=== PATIENT | male | born 1955 | race Caucasian/White ===

== ENCOUNTER 2021-02-19 19:13 | Emergency (ER) | payer MEDICARE ==
[2021-02-19 19:55] LABS: BASO # 0.05 (0.02-0.10); EOS # 0.05 (0.04-0.40); EOS % 0.4 % (0.0-4.0); HEMATOCRIT 44.1 % (42.0-52.0); HEMOGLOBIN 15.4 g/dL (13.5-18.0); LYMPH# 1.23 (1.50-4.00); MEAN CELL VOLUME 93 fl (78-100); MEAN CORPUSCULAR HEMOGLOBIN 32 pg (27-31); MEAN CORPUSCULAR HGB CONC 35 g/dL (33-37); MEAN PLATELET VOLUME 9.2 fl (7.4-10.4); MONO # 0.52 (0.20-0.80); NEU # 10.26 (1.40-6.50); PLATELET COUNT 211 K/mm3 (130-400); RED BLOOD COUNT 4.77 M/mm3 (4.20-5.60); RED CELL DISTRIBUTION WIDTH 11.9 % (11.5-14.5); WHITE BLOOD COUNT 12.1 K/mm3 (4.8-10.8)
[2021-02-19 20:11] LABS: ALBUMIN 4.3 g/dL (3.4-4.8); POTASSIUM 3.9 mmol/L (3.5-5.1)
[2021-02-19 20:12] LABS: CALCIUM 9.6 mg/dL (8.3-10.5)
[2021-02-19 20:13] LABS: TOTAL PROTEIN 7.3 g/dL (6.2-8.1)
[2021-02-19 20:15] LABS: TOTAL BILIRUBIN 0.5 mg/dL (0.2-1.2)
[2021-02-19] MEDS ORDERED: ALPRAZOLAM1 MG PO (20:34)
[2021-02-19] MEDS ORDERED: AMLODIPINE BESYL5 MG PO (20:35)
[2021-02-19] MEDS ORDERED: CYCLOBENZAPRINE10 M1 PO (20:35)
[2021-02-19] MEDS ORDERED: FLUTICASON0.05 MG/AC NS (20:35)
[2021-02-19] MEDS ORDERED: LISINOPRIL20 MG PO (20:36)
[2021-02-19] MEDS ORDERED: HCTZ 25MG25 MG PO (20:36)
[2021-02-19] MEDS ORDERED: FLOMAX0.4 MG PO (20:37)
[2021-02-19] MEDS ORDERED: MELOXICAM15 MG PO (20:37)
[2021-02-19] MEDS ORDERED: ULTRAM50 M1 PO (20:38)
[2021-02-19 21:06] LABS: URINE APPEARANCE CLEAR; URINE COLOR YELLOW; URINE PROTEIN(semi-quant) NEGATIVE (NEGATIVE)
[2021-02-19 21:07] LABS: URINE BILIRUBIN NEGATIVE (NEGATIVE); URINE BLOOD TRACE (NEGATIVE); URINE KETONE 1+ (NEGATIVE); URINE LEUKOCYTE ESTERASE NEGATIVE (NEGATIVE); URINE NITRATE NEGATIVE (NEGATIVE); URINE UROBILINOGEN NORMAL (NORMAL); URINE WBC 0-1 /hpf (0-3)
[2021-02-20 03:52] VITALS: BP 140/88
== END 2021-02-20 03:52 | disposition home or self-care (01) ==
LOC: ED 19:13
PROVIDERS: Family Medicine
DX: N20.1 Calculus of ureter (principal); K59.00 Constipation, unspecified; G89.29 Other chronic pain; M54.9 Dorsalgia, unspecified; E11.9 Type 2 diabetes mellitus without complications; I10 Essential (primary) hypertension; N40.0 Benign prostatic hyperplasia without lower urinary tract symptoms; Z87.891 Personal history of nicotine dependence; Z79.899 Other long term (current) drug therapy
CPT/HCPCS: J0696; J1885; J7030

== ENCOUNTER 2022-04-26 17:08 | Emergency (ER) | payer MEDICARE ==
[~2022-04-26 17:08] MED LIST: ALPRAZOLAM1 MG PO; AMLODIPINE BESYL5 MG PO; CYCLOBENZAPRINE10 M1 PO; FLOMAX0.4 MG PO; FLUTICASON0.05 MG/AC NS; HCTZ 25MG25 MG PO; LISINOPRIL20 MG PO; MELOXICAM15 MG PO; ULTRAM50 M1 PO
[2022-04-26] MEDS ORDERED: NORCO 325 MG-7.1 TAB PO (17:14)
[2022-04-26] MEDS ORDERED: ATORVASTATIN CA10 MG PO (17:15)
[2022-04-26] MEDS ORDERED: GLUCOPHAGE PO (17:15)
[2022-04-26] MEDS ORDERED: FLUTICASONE-SA1 EAC3 IH (17:15)
[2022-04-26 17:54] LABS: BASO # 0.06 K/mm3 (0.02-0.10); EOS # 0.13 K/mm3 (0.04-0.40); EOS % 1.9 % (0.0-4.0); HEMATOCRIT 43.9 % (42.0-52.0); HEMOGLOBIN 15.7 g/dL (13.5-18.0); LYMPH# 1.58 K/mm3 (1.50-4.00); MEAN CELL VOLUME 92 fl (78-100); MEAN CORPUSCULAR HEMOGLOBIN 33 pg (27-31); MEAN CORPUSCULAR HGB CONC 36 g/dL (33-37); MEAN PLATELET VOLUME 9.9 fl (7.4-10.4); MONO # 0.55 K/mm3 (0.20-0.80); NEU # 4.56 K/mm3 (1.40-6.50); PLATELET COUNT 211 K/mm3 (130-400); RED BLOOD COUNT 4.78 M/mm3 (4.20-5.60); RED CELL DISTRIBUTION WIDTH 11.6 % (11.5-14.5); WHITE BLOOD COUNT 6.9 K/mm3 (4.8-10.8)
[2022-04-26 18:05] LABS: ALBUMIN 4.1 g/dL (3.4-4.8); POTASSIUM 3.6 mmol/L (3.5-5.1); SODIUM 135 mmol/L (136-145)
[2022-04-26 18:06] LABS: CALCIUM 9.3 mg/dL (8.3-10.5)
[2022-04-26 18:08] LABS: CARBON DIOXIDE 22 mmol/L (23-31)
[2022-04-26 18:09] LABS: TOTAL BILIRUBIN 0.8 mg/dL (0.2-1.2)
[2022-04-26 18:13] LABS: AST-SGOT 60 U/L (5-34)
[2022-04-26 18:14] LABS: ALT/SGPT 85 U/L (0-55)
[2022-04-26 18:22] LABS: GLUCOSE 435 mg/dL (75-110); TROPONIN-I < 0.030 ng/mL (<0.030)
[2022-04-26 19:17] LABS: URINE APPEARANCE CLEAR; URINE COLOR YELLOW
[2022-04-26 19:18] LABS: URINE BILIRUBIN NEGATIVE (NEGATIVE); URINE BLOOD NEGATIVE (NEGATIVE); URINE KETONE NEGATIVE (NEGATIVE); URINE LEUKOCYTE ESTERASE NEGATIVE (NEGATIVE); URINE NITRATE NEGATIVE (NEGATIVE); URINE PROTEIN(semi-quant) NEGATIVE (NEGATIVE); URINE UROBILINOGEN NORMAL (NORMAL); URINE WBC 0-1 /hpf (0-3)
[2022-04-26] MEDS ORDERED: ATHLETE'S FOOT1% TP (20:00)
[2022-04-26 20:20] VITALS: BP 108/60
== END 2022-04-26 20:22 | disposition home or self-care (01) ==
LOC: ED 17:08
PROVIDERS: Physician Assistant
DX: E11.65 Type 2 diabetes mellitus with hyperglycemia (principal); E11.40 Type 2 diabetes mellitus with diabetic neuropathy, unspecified; R07.89 Other chest pain; Z28.310 Unvaccinated for COVID-19
CPT/HCPCS: J1885; J7030

== ENCOUNTER → 2022-10-24 | Outpatient (CLI) | payer MEDICARE, OTHER ==
[~2022-10-24] MED LIST changes: +ATHLETE'S FOOT1% TP; +ATORVASTATIN CA10 MG PO; +FLUTICASONE-SA1 EAC3 IH; +GLUCOPHAGE PO; +NORCO 325 MG-7.1 TAB PO
[2022-10-24 11:54] LABS: BASO # 0.04 K/mm3 (0.02-0.10); EOS # 0.35 K/mm3 (0.04-0.40); EOS % 4.6 % (0.0-4.0); HEMATOCRIT 45.9 % (42.0-52.0); HEMOGLOBIN 16.3 g/dL (13.5-18.0); LYMPH# 2.18 K/mm3 (1.50-4.00); MEAN CELL VOLUME 92 fl (78-100); MEAN CORPUSCULAR HEMOGLOBIN 33 pg (27-31); MEAN CORPUSCULAR HGB CONC 36 g/dL (33-37); MONO # 0.57 K/mm3 (0.20-0.80); NEU # 4.55 K/mm3 (1.40-6.50); PLATELET COUNT 226 K/mm3 (130-400); WHITE BLOOD COUNT 7.7 K/mm3 (4.8-10.8)
[2022-10-24 12:00] LABS: ALBUMIN 4.4 g/dL (3.4-4.8)
[2022-10-24 12:01] LABS: CALCIUM 10.1 mg/dL (8.3-10.5)
[2022-10-24 12:03] LABS: TOTAL PROTEIN 7.5 g/dL (6.2-8.1)
[2022-10-24 12:05] LABS: TOTAL BILIRUBIN 0.6 mg/dL (0.2-1.2)
[2022-10-24 12:10] LABS: MAGNESIUM 1.91 mg/dL (1.60-2.60)
[2022-10-24 13:05] LABS: ERYTHROCYTE SEDIMENTATION RATE 10 mm/hr (0-20)
== END ==
LOC: LAB 11:37
PROVIDERS: Internal Medicine
DX: M54.12 Radiculopathy, cervical region (principal); M54.16 Radiculopathy, lumbar region; I10 Essential (primary) hypertension; E78.2 Mixed hyperlipidemia; E11.9 Type 2 diabetes mellitus without complications; K90.9 Intestinal malabsorption, unspecified; K13.70 Unspecified lesions of oral mucosa

== ENCOUNTER → 2024-08-02 | Outpatient (CLI) | payer OTHER ==
[2024-08-02 16:39] LABS: FOLLICLE STIMULATING HORMONE 7.7 mIU/mL (1.0-12.0); LUTENIZING HORMONE 2.5 mIU/mL (0.6-12.1); PROLACTIN AMS 8.2 ng/mL (3.5-19.4)
== END ==
LOC: LAB 07:09
PROVIDERS: Internal Medicine
DX: R89.1 Abnormal level of hormones in specimens from other organs, systems and tissues (principal)

== ENCOUNTER → 2024-09-27 | Outpatient (CLI) | payer OTHER | LOC: RAD 14:41 | DX: R09.89 Other specified symptoms and signs involving the circulatory and respiratory systems (principal) ==

== ENCOUNTER → 2024-11-07 | Outpatient (CLI) | payer OTHER | LOC: LAB 15:25 | DX: E11.9 Type 2 diabetes mellitus without complications (principal) ==